=== PATIENT | female | born 1940 | race Caucasian/White ===

== ENCOUNTER → 2021-02-25 01:51 | Outpatient (CLI) | payer MEDICARE, MEDICAID, SELFPAY ==
[2021-02-25 17:27] LABS: SARS-CoV-2 RNA PCR Negative
== END ==
PROVIDERS: PCP Family Medicine; Visit Provider Surgery
DX: Z01.812 Encounter for preprocedural laboratory examination (principal); Z20.822 Contact with and (suspected) exposure to COVID-19
CPT/HCPCS: C9803; U0003; U0005

== ENCOUNTER 2021-02-25 08:28 | Outpatient (CLI) | payer MEDICARE, MEDICAID, SELFPAY ==
--- NOTE | ~2021-02-25 | XR_ITS ---
XR chest 2V DATE: 02/25/2021 09:04 INDICATION: Gastroesophageal reflux TECHNIQUE: PA and lateral views COMPARISON: None FINDINGS: Cardiomegaly. Aortic calcification. No hilar or mediastinal enlargement. Minimal atelectasis or infiltrate at the lung bases. No pleural effusion or pulmonary vascular conges tion or pneumothorax. Diffuse osteopenia. There is levoscoliosis, kyphosis and degenerative change of the thoracic spine an d degenerative change of the lumbar spine. IMPRESSION: Minimal infiltrate or atelectasis at the lung bases Cardiomegaly Aortic atherosclerosis Reviewed, dictated and finalized at location B.
--- NOTE | 2021-02-25 08:45 | ECG_ITS ---
Measurements Intervals [place] Rate: 67 P: 59 SD: 181 QRS: 58 QRSD: 97 T: 28 QT: 423 QTc: 447 Interpretive Statements SINUS RHYTHM NONSPECIFIC T-WAVE ABNORMALITY- ANTERIOR LEADS BASELINE ARTIFACT- I, II, III, AVR, AVL BORDERLINE ECG Electronically Signed On 02-25-2021 9:01:02 CDT by Will Hill D.O.
[2021-02-25 09:21] LABS: Hematocrit 31.8 % (37.0-47.0); Hemoglobin 9.8 g/dL (12.0-15.0); Mean Corpuscular HGB Conc 30.8 g/dl (32-36); Mean Corpuscular Hemoglobin 28.7 pg (26-34); Platelet Count Result 146 k/mm3 (150-375); Red Blood Count 3.42 M/mm3 (4.2-5.4); Red Cell Distribution Width 14.9 % (11.5-14.5)
[2021-02-25 09:35] LABS: Anion Gap 7 mmol/L (8-16); Blood Urea Nitrogen 31 mg/dL (7-17); Calcium 9.9 mg/dL (8.4-10.2); Carbon Dioxide 30 mmol/L (22-30); Chloride 107 mmol/L (98-107); Estimated Glomerular Filt Rate 40; Glucose 106 mg/dL (65-110); Potassium 4.3 mmol/L (3.4-5.0); Sodium 144 mmol/L (137-145)
== END 2021-02-25 08:29 | disposition home or self-care (01) ==
PROVIDERS: PCP Family Medicine; Visit Provider Surgery
DX: Z01.818 Encounter for other preprocedural examination (principal); I51.7 Cardiomegaly; I70.0 Atherosclerosis of aorta; R94.31 Abnormal electrocardiogram [ECG] [EKG]
CPT/HCPCS: 36415; 71046; 80048; 85027; 93005; C9803; U0003; U0005

== ENCOUNTER 2021-02-28 01:05 | Day surgery (SDC) | payer MEDICARE, MEDICAID, SELFPAY ==
[2021-02-15 08:52] VITALS: BMI 24.5
--- NOTE | 2021-02-27 15:24 | PM.SD2 ---
Same Day Admit/Disch: HPI History of Present Illness Chief complaint: Recurrent Right Inguinal Hernia Narrative: Jessica Layton is a 80 year old female who noticed right groin pain and a bulge after lifting a heavy bag of feed. She had a previous right inguinal hernia repair some 40 years ago. She was seen in the office and found to have a recurrent right inguinal hernia. She is taken to surgery now for repair. The patient does take Eliquis for atrial fibrillation. This was stopped 2 days prior to surgery. [facility] Past Medical History Medical History (Updated 02/28/21 @ 12:26 by Zeb Grace MD) Atrial fibrillation GERD (gastroesophageal reflux disease) Thyroid disease Surgical History Surgical History H/O hemorrhoidectomy H/O right inguinal hernia repair With mesh in H/O: hysterectomy History of appendectomy History of bilateral knee replacement History of cardiac cath 2015 History of kidney surgery 2011 History of right hip replacement Family History Family History Sibling Lung cancer Social History Social History Smoking status: Never smoker Alcohol intake: never Substance use: never Living arrangements: with family Additional living arrangements comments: [facility] Spiritual care concerns: No Same Day Admit/Disch: Med Pre-admit Medications Home Medications Medication Instructions Recorded Confirmed Type apixaban 5 mg tablet 5 mg PO BID 01/27/20 02/28/21 History carvedilol 25 mg tablet 25 mg PO Q12H 01/27/20 02/28/21 History levothyroxine 100 mcg capsule 100 mcg PO QAM 01/27/20 02/28/21 History pantoprazole 40 mg tablet,delayed 40 mg PO QAM 01/27/20 02/28/21 History release ferrous sulfate 325 mg (65 mg 325 mg PO DAILY 12/25/20 02/28/21 History iron) tablet ascorbate calcium (vitamin C) 500 mg PO DAILY 02/15/21 02/28/21 History cyanocobalamin (vitamin B-12) 1,000 mcg PO DAILY 02/15/21 02/28/21 History suuwrbzuvcts-Uf-zdge-minerals 1 tablet PO DAILY 02/15/21 02/28/21 History hydrocodone-acetaminophen 1 - 2 tablet PO Q6H PRN #12 tablet 02/28/21 Rx Exam Const: General: comfortable, no acute distress, alert and awake HENMT: Head: normocephalic and atraumatic Mouth: Yes Normal oral and palatal mucosa present Eyes: Conjunctivae: conjunctivae normal Pupils: Equal, round and reactive pupils present EOM: EOMs intact bilaterally Neck: Neck: normal visual inspection, no lymphadenopathy and nontender Resp: Effort & Inspection: normal respiratory effort Auscultation: clear to auscultation bilaterally Cardio: Rate: regular rate Rhythm: regular rhythm Heart sounds: no gallops, no murmurs and no rubs GI: Inspection: non-distended and visible herniation (Bulge in the right groin) GI Palp: Yes Soft to palpation, No Tenderness to palpation present (GI), No Hepatomegaly present, No Splenomegaly present and Yes Hernia present (Reducible right inguinal hernia, pulses with cough) Auscultation: normal bowel sounds Skin: Lesions: no lesions Rashes: no rashes Neuro: General: no focal motor deficits and CN's II-XI intact bilaterally Cranial nerves: Yes Equal, round and reactive pupils present, Yes Bilaterally intact EOM present, Yes facial symmetry and Yes Midline tongue present Speech: normal speech Motor exam (neuro): 5/5 motor strength present throughout and Motor abnormalities not present Extrem: General: no clubbing, cyanosis or edema and edema Psych: Affect: normal affect Thought process: Normal thought process present Insight: Good insight present (Psych) DS: Summary Time Spent with Patient Time attestation: Total time spent providing and/or coordinating discharge services: DS: Admitting Diagnosis Discharge Date 02/28/2021 Admitting Diagnosis Recurrent right inguinal hernia--plan to proceed with
[2021-02-28] MEDS: ACETAMINOPHEN 500 MG TABLET 1000 MG PO (09:30)
[2021-02-28] MEDS: LACTATED RINGERS 1,000 ML 30 ML IV CONT (09:40)
[2021-02-28] MEDS: KETOROLAC 15 MG/ML VIAL (*BKC) IV PUSH (09:45)
[2021-02-28 09:47] VITALS: BP 136/88; PULSE 69; TEMP 36.6; O2SAT 97
--- NOTE | 2021-02-28 09:48 | P.PNAN_ITS ---
Anes - Initial Pre Proc Eval Procedure: Operation Date: 02/28/21 10:30 Proposed Procedures p Repair of Recurrent Right Inguinal Hernia - Zeb Grace MD Date/Time: 02/28/21 09:48 Surgeon: Zeb Grace MD Pre Op Diagnosis: Recurrent Right Inguinal Hernia Patient Data Age: 80 Gender: F Height: 1.73 m Weight: 73 kg Allergies Allergy/AdvReac Type Severity Reaction Status Date / Time iodine Allergy Mild HOT FLASHES Verified 02/28/21 09:15 Sulfa (Sulfonamide Allergy Mild Unknown Verified 02/28/21 09:15 Antibiotics) Home Medications Medication Instructions Recorded Confirmed Type apixaban 5 mg tablet 5 mg PO BID 01/27/20 02/28/21 History carvedilol 25 mg tablet 25 mg PO Q12H 01/27/20 02/28/21 History levothyroxine 100 mcg capsule 100 mcg PO QAM 01/27/20 02/28/21 History pantoprazole 40 mg tablet,delayed 40 mg PO QAM 01/27/20 02/28/21 History release ferrous sulfate 325 mg (65 mg 325 mg PO DAILY 12/25/20 02/28/21 History iron) tablet ascorbate calcium (vitamin C) 500 mg PO DAILY 02/15/21 02/28/21 History cyanocobalamin (vitamin B-12) 1,000 mcg PO DAILY 02/15/21 02/28/21 History ieqlfahbixsp-Lw-ocwj-minerals 1 tablet PO DAILY 02/15/21 02/28/21 History [Multiple Vitamin, Womens] Patient hx anesthesia problems: none Family hx anesthesia problems: none Results Review: All pre-operative results and documents have been reviewed as part of the pre-operative evaluation. [facility], [facility] Past Medical History Medical History (Updated 02/28/21 @ 09:48 by Momo Infante MD) Atrial fibrillation GERD (gastroesophageal reflux disease) Thyroid disease Surgical History Surgical History H/O hemorrhoidectomy H/O right inguinal hernia repair With mesh in s H/O: hysterectomy History of appendectomy History of bilateral knee replacement History of cardiac cath 2016 History of kidney surgery 2011 History of right hip replacement Family History Family History Sibling Lung cancer Social History Social History Smoking status: Never smoker Alcohol intake: never Substance use: never Living arrangements: with family Additional living arrangements comments: [facility] Spiritual care concerns: No Anes - Eval Final PreProcedure Day of Procedure 02/28/21 09:48 Patient weight: normal Heart: regular rate and rhythm Lungs: clear to auscultation Airway: Mallampati scale class II Neurological: alert and oriented Last oral intake: >/= 8 hours ASA classification: III Emergent: no Anesthetic plan: proceed Anesthesia type and monitoring: general GIVS and standard monitoring Results Review: All pre-operative results and documents have been reviewed as part of the pre-operative evaluation. Informed Consent: The patient's anesthetic plan and its attendant risks and benefits were discussed with the patient/family/POA. Questions were solicited and answers provided to the satisfaction of the patient/family/POA.
--- NOTE | 2021-02-28 10:35 | WPDHPUPDATE1 ---
History and Physical Update Update Date/Time: 02/28/21 10:35 History and Physical has been reviewed, including an updated exam of the patient. There are NO changes in the patient's condition. Risks, benefits, and alternatives have been discussed and questions answered. Patient agrees to proceed with procedure.
[2021-02-28] MEDS: ceFAZolin 2 GM/D5W 50 ML 2 GM/50 ML BAG IVPB (10:43)
[2021-02-28] MEDS: LIDO 1%/EPINEPHRINE 1:100,000 50 ML VIAL INFILTRATE (10:57)
[2021-02-28 12:09] VITALS: BP 137/77; PULSE 63; RESP 14; O2SAT 96
--- NOTE | 2021-02-28 12:26 | P.OP_ITS ---
Procedure Note - Detailed Date of Procedure 02/28/21 Pre-op Diagnosis Recurrent Right Inguinal Hernia Post-op Diagnosis same Procedure Performed Right inguinal hernia repair with 8 cm Parietex hernia mesh system Surgeon Zeb Grace MD Order Processor Kayycedric Reedmigel DOMÍNGUEZ INCIDENT RESPONSE ANALYST Anesthesia MAC and local (1% lidocaine with epinephrine) Indications Patient had a right inguinal hernia repair 40 years ago. After lifting a heavy object, she felt pain and noticed a bulge in the right groin. Exam showed a recurrent right inguinal hernia. She is taken to surgery now for repair Findings Showed a large indirect right inguinal hernia. Description of Procedure The patient was taken to surgery and IV sedation was administered. Prep and drape of the right groin was carried out. The proposed incision was marked on the skin. Local was infiltrated into the skin and the deeper subcutaneous tissues. Incision was made and deepened through the subcutaneous. Crossing veins were cauterized and divided. We dissected down through Micky's fascia and to the external oblique aponeurosis. The aponeurosis was exposed as was the external ring. I infiltrated additional local deep to the aponeurosis in the area of the round ligament and inguinal canal contents. The external oblique was then opened laterally and this was extended medially through the external ring. The leaves of the aponeurosis were freed from the underlying inguinal canal contents. The ileo inguinal nerve was very diminutive will be on the external ring and was divided. The round ligament was mobilized medially near the pubic tubercle. I then dissected and divided the round ligament and some fatty tissue so the hernia and round ligament were mobile back to the internal ring. I then dissected some lipomatous tissue away from the large hernia sac. A bit more the round ligament was taken with the fatty tissue. I dissected the hernia sac back to a high dissection. The hernia sac was dunked into the retroperitoneum. I trimmed away some residual muscle and fatty tissue in the area of the internal ring. These tissues were discarded. An 8 cm Parietex [place] was chosen. It was folded deform a plug. It was placed in the defect. The edges were sutured to the transversalis fascia with interrupted 3 0 Vicryl suture. The defect was then partially closed over the plug with 3-0 Vicryl suture. The patch was then cut to the appropriate size and placed over the entire inguinal floor. I then put some of the Xaracoll bupivacaine anesthetic over the mesh. The external oblique was then closed over the repair with interrupted 3 0 Vicryl suture. More Xaracoll was placed over the external oblique aponeurosis. Micky's fascia was then closed with interrupted 3 0 Vicryl suture. Xaracoll was then placed in the subcutaneous. The skin was closed using interrupted 4 0 Vicryl subcuticular suture. A running 4-0 Monocryl skin suture was then placed. The wound was dressed with Exofin surgical adhesive. The patient was awakened and taken to recovery in good condition. Sponge and needle counts were correct x2. Implants 8 cm Parietex hernia mesh system, Xaracoll bupivacaine impregnated bovine collagen Estimated Blood Loss 5 Drains No Packing No Pathology none sent Complications None Condition stable Disposition same day
[2021-02-28 12:30] VITALS: BP 170/80; PULSE 70; RESP 16; O2SAT 96
[2021-02-28 13:00] VITALS: PULSE 72; RESP 16
[2021-02-28 13:15] VITALS: PULSE 82; RESP 16; O2SAT 97
== END 2021-02-28 13:22 | disposition home or self-care (01) ==
PROVIDERS: PCP Family Medicine; Visit Provider Surgery
PROC: (CPT 49520; principal; 2021-02-28 10:30)
DX: K40.91 Unilateral inguinal hernia, without obstruction or gangrene, recurrent (principal); I48.91 Unspecified atrial fibrillation; K21.9 Gastro-esophageal reflux disease without esophagitis; E07.9 Disorder of thyroid, unspecified; I49.9 Cardiac arrhythmia, unspecified; Z79.01 Long term (current) use of anticoagulants
CPT/HCPCS: 49520; A9270; C1781; J0690; J1885; J2704; J3010; J7120

== ENCOUNTER → 2021-03-23 11:21 | Outpatient (CLI) | payer MEDICARE, MEDICAID, SELFPAY ==
--- NOTE | ~2021-03-23 | US_ITS ---
EXAMINATION: US soft tissue groin RT INDICATION: Other intra-abdominal and pelvic swelling and mass, recent hernia surgery TECHNIQUE: Targeted ultrasound is performed in the area of clinical concern. COMPARISON: None available FINDINGS: There is an approximately 3.1 x 1.6 cm area of heterogeneous echogenicity and right inguina l area in the area of clinical concern near the patient's surgical scar. There is posterior acoustic enhancement with some peripheral vascularity. Normal-sized inguinal lymph nodes are noted. IMPRESSION: 1. Small area of heterogeneous echogenicity corresponding to the area of clinical concern which, in t he absence of obvious signs of infection, likely represents an evolving postoperative hematoma. Recom mend continued clinical follow-up with repeat ultrasound or contrast-enhanced CT if findings do not r esolve. Reviewed, dictated and finalized at location A. IMPRESSION: 1. Small area of heterogeneous echogenicity corresponding to the area of clinic al concern which, in the absence of obvious signs of infection, likely represen ts an evolving postoperative hematoma. Recommend continued clinical follow-up w ith repeat ultrasound or contrast-enhanced CT if findings do not resolve.
== END ==
PROVIDERS: PCP Family Medicine; Visit Provider Surgery
DX: R22.2 Localized swelling, mass and lump, trunk (principal); Z87.19 Personal history of other diseases of the digestive system; Z98.890 Other specified postprocedural states
CPT/HCPCS: 76882